=== PATIENT | male | born 1975 | race African-American/Black ===

== ENCOUNTER 2017-09-25 18:16 | Emergency (ER) | payer MEDICAID ==
[~2017-09-25] VITALS: Ht 175.3 cm; Wt 163.0 kg
[2017-09-25] MEDS ORDERED: ONDANSETRON HCL 4MG/2ML VIAL IV STA (19:08)
[2017-09-25] MEDS ORDERED: DIPHENHYDRAMINE 50MG/ML VIAL IV ONE (19:15)
[2017-09-25] MEDS ORDERED: FENTANYL CITRATE/PF 50MCG/ML 2ML VIAL IV ONE (19:15)
[2017-09-25 19:24] LABS: EOSINOPHILS % 3.5 % (0.0-5.0); HEMATOCRIT. 41.5 % (42.0-52.0); HEMOGLOBIN. 13.2 g/dL (14.0-18.0); LYMPHOCYTES % 31.2 % (20.0-50.0); MEAN CORPUSCULAR HEMOGLOBIN 25.1 pg (28.0-32.0); MEAN CORPUSCULAR VOLUME 78.9 fL (80.0-94.0); MEAN PLATELET VOLUME 9.6 fl (7.4-10.4); MONOCYTES % 5.6 % (2.0-8.0); NEUTROPHILS % 58.7 % (40.0-76.0); PLATELET 213 x1000/uL (130-400); RED BLOOD CELL COUNT 5.27 mill/uL (4.7-6.1); RED CELL DISTRIBUTION WIDTH 13.7 % (11.6-14.6)
[2017-09-25 19:30] LABS: PROTHROMBIN TIME 10.1 sec (9.4-11.6)
[2017-09-25 19:33] LABS: CHLORIDE 109 mEq/L (98-107)
[2017-09-25 19:40] LABS: ETHANOL BLOOD < 10 mg/dL
[2017-09-25 20:02] LABS: CLARITY URINE CLEAR (CLEAR); COLOR URINE YELLOW (YELLOW); KETONES URINE NEGATIVE (NEGATIVE); LEUKOCYTE ESTERASE URINE NEGATIVE (NEGATIVE); NITRITE URINE NEGATIVE (NEGATIVE); OCCULT BLOOD URINE 1+ (NEGATIVE); PH URINE 6.5 (4.5-8.0); PROTEIN URINE NEGATIVE (NEGATIVE); SPECIFIC GRAVITY URINE 1.012 (1.005-1.030); UROBILINOGEN URINE 0.2 E.U./dL (0.2-1.0)
[2017-09-25 20:21] LABS: *AMPHETAMINES SCREEN URINE NEGATIVE (NEGATIVE); *BARBITURATES SCREEN URINE NEGATIVE (NEGATIVE); *BENZODIAZEPINES SCREEN URINE NEGATIVE (NEGATIVE); *COCAINE SCREEN URINE NEGATIVE (NEGATIVE); METHADONE URINE SCREEN NEGATIVE (NEGATIVE); OPIATES URINE SCREEN NEGATIVE (NEGATIVE)
[2017-09-25 20:22] LABS: CANNABINOID URINE SCREEN NEGATIVE (NEGATIVE); PHENCYCLIDINE URINE SCREEN NEGATIVE (NEGATIVE)
[2017-09-25 20:51] VITALS: BP 151/100
== END 2017-09-26 00:17 | disposition home or self-care (01) ==
LOC: ER 18:30
DX: N23 Unspecified renal colic (principal); N20.0 Calculus of kidney; I16.0 Hypertensive urgency; Z87.891 Personal history of nicotine dependence
CPT/HCPCS: 36415; 71045; 72131; 74176; 80053; 80305; 81003; 83605; 83690; 83880; 84484; 85025; 85610; 93005; 96374; 96375; 99285; G0482; J1200; J2405; J3010; Z7610

== ENCOUNTER 2018-08-12 09:29 | Emergency (ER) | payer MEDICAID ==
[2018-08-12 09:49] VITALS: BP 159/105
[2018-08-12] MEDS ORDERED: KETOROLAC 60MG/2ML VIAL IM STA (11:16)
== END 2018-08-12 12:03 | disposition home or self-care (01) ==
LOC: ER 09:29
DX: M79.601 Pain in right arm (principal); R20.2 Paresthesia of skin; F17.200 Nicotine dependence, unspecified, uncomplicated; F12.10 Cannabis abuse, uncomplicated; F15.10 Other stimulant abuse, uncomplicated
CPT/HCPCS: 96372; 99283; J1885

== ENCOUNTER 2018-08-22 05:44 | Emergency (ER) | payer MEDICAID ==
[~2018-08-22] VITALS: Ht 175.3 cm; Wt 118.0 kg
[2018-08-22] MEDS ORDERED: ACETAMINOPHEN WITH CODEINE 300/30MG TABLET PO ONE (08:45)
[2018-08-22] MEDS ORDERED: KETOROLAC 60MG/2ML VIAL IM ONE (09:30)
[2018-08-22 09:39] VITALS: BP 160/109
== END 2018-08-22 09:41 | disposition home or self-care (01) ==
LOC: ER 05:44
DX: G89.29 Other chronic pain (principal); M79.601 Pain in right arm; R20.2 Paresthesia of skin; R03.0 Elevated blood-pressure reading, without diagnosis of hypertension; F15.10 Other stimulant abuse, uncomplicated; F12.90 Cannabis use, unspecified, uncomplicated; F17.210 Nicotine dependence, cigarettes, uncomplicated
CPT/HCPCS: 99283

== ENCOUNTER → 2019-10-30 | Outpatient (CLI) | payer MEDICAID ==
[~2019-10-30] MED LIST: GABA-531 PO; HYDR25TA PO; IBUP-2741 PO; NAPR-681 PO
== END | disposition home or self-care (01) ==
LOC: LAB 08:37
PROVIDERS: ATTEND Neurological Surgery
DX: Z01.818 Encounter for other preprocedural examination (principal); Z11.59 Encounter for screening for other viral diseases
CPT/HCPCS: C9803; U0003

== ENCOUNTER 2019-11-01 06:37 | Inpatient (IN) | payer MEDICAID ==
[2019-11-01] VITALS (25 sets, daily range): BP systolic 120–156; BP diastolic 65–92
[~2019-11-01] VITALS: Ht 175.3 cm; Wt 137.4 kg
[~2019-11-01 06:37] MED LIST changes: -GABA-531 PO; -HYDR25TA PO; -IBUP-2741 PO; +LACTATED RINGERS 1,000 ML IV SCH; -NAPR-681 PO
[2019-11-01] MEDS ORDERED: THROMBIN (BOVINE) 5000 UNITS/VIAL TOP ONE (07:37)
[2019-11-01] MEDS ORDERED: LIDOCAINE HCL/EPINEPHRINE 1%-EPI 1:100,000 20 ML VIAL ONE ×2 (07:38→07:39)
[2019-11-01] MEDS ORDERED: BACITRACIN 50,000 UNITS/VIAL ONE (07:38)
[2019-11-01] MEDS ORDERED: NORMAL SALINE 0.9% 10 ML SYR ONE (07:39)
[2019-11-01] MEDS ORDERED: GABA-531 PO (08:08)
[2019-11-01] MEDS ORDERED: HYDR25TA PO (08:08)
[2019-11-01] MEDS ORDERED: NAPR-681 PO (08:08)
[2019-11-01] MEDS ORDERED: IBUP-2741 PO (08:08)
[2019-11-01] MEDS ORDERED: NEOSTIGMINE METHYLSULFATE 1MG/ML 10 ML VIAL ONE (10:34)
[2019-11-01] MEDS ORDERED: FENTANYL CITRATE/PF 50MCG/ML 2ML VIAL ONE ×2 (10:34→11:18)
[2019-11-01] MEDS ORDERED: PROPOFOL 200MG/20ML VIAL IV ONE (10:34)
[2019-11-01] MEDS ORDERED: ROCURONIUM BROMIDE 10MG/ML VIAL 5ML IV ONE (10:34)
[2019-11-01] MEDS ORDERED: MIDAZOLAM HCL 2 MG/2 ML VIAL ONE (10:34)
[2019-11-01] MEDS ORDERED: GLYCOPYRROLATE 0.2 MG/ML 2ML VIAL ONE ×2 (10:35→12:39)
[2019-11-01] MEDS ORDERED: HYDROMORPHONE HCL/PF 2MG/ML (OR) ONE (11:15)
[2019-11-01] MEDS ORDERED: ONDANSETRON HCL 4MG/2ML INJ ONE (11:15)
[2019-11-01] MEDS ORDERED: ONDANSETRON HCL 4MG/2ML INJ IV PRN (12:00)
[2019-11-01] MEDS ORDERED: LABETALOL 5MG/ML SYR 20 MG/4 ML SYRINGE IV PRN (12:00)
[2019-11-01] MEDS ORDERED: MEPERIDINE HCL/PF 25MG/ML CPJ IV PRN (12:00)
[2019-11-01] MEDS: DEXAMETHASONE 4MG/ML 1ML VIAL IV SCH ×3 (12:00→23:55)
[2019-11-01] MEDS ORDERED: HYDRALAZINE 20MG/ML VIAL ONE (12:41)
[2019-11-01] MEDS: HYDROMORPHONE HCL/PF 2MG/ML CPJ IV PRN ×5 (13:37→17:11)
[2019-11-01] MEDS ORDERED: CEFAZOLIN SODIUM 1000MG/VIAL IV SCH (14:00)
[2019-11-01] MEDS ORDERED: HYDRALAZINE 20MG/ML VIAL IV NR (14:15)
[2019-11-01] MEDS: CEFAZOLIN 1000MG PREMIX 50 ML IV SCH (17:55)
[2019-11-01] MEDS: MORPHINE SULFATE 4 MG/ML CPJ (NOT FOR IM USE) IV PRN ×3 (17:56→23:18)
[2019-11-01] MEDS: DEXT 5%/LACTATED RINGERS 1,000 ML IV SCH (17:56)
[2019-11-01] MEDS ORDERED: IPRATROPIUM/ALBUTEROL 0.5-3(2.5)MG/3ML NEB HHN PRN (19:15)
[2019-11-01 19:42] LABS: HEMATOCRIT. 44.8 % (42.0-52.0); HEMOGLOBIN. 13.7 g/dL (14.0-18.0); MEAN CORPUSCULAR HEMOGLOBIN 24.9 pg (28.0-32.0); MEAN CORPUSCULAR VOLUME 81.2 fL (80.0-94.0); MEAN PLATELET VOLUME 9.7 fl (7.4-10.4); PLATELET 209 x1000/uL (130-400); RED BLOOD CELL COUNT 5.51 mill/uL (4.7-6.1); RED CELL DISTRIBUTION WIDTH 13.7 % (11.6-14.6)
[2019-11-01 19:45] LABS: CHLORIDE 108 mEq/L (98-107)
[2019-11-01 20:05] LABS: PLATELET ESTIMATE NORMAL
[2019-11-01] MEDS: NICARDIPINE 100 MG in SODIUM CHLORIDE 0.9% 60 ML IV PRN (21:23)
[2019-11-02] VITALS (92 sets, daily range): BP systolic 118–177; BP diastolic 55–107
[2019-11-02] MEDS: CEFAZOLIN 1000MG PREMIX 50 ML IV SCH ×3 (01:31→17:56)
[2019-11-02] MEDS: DEXT 5%/LACTATED RINGERS 1,000 ML IV SCH ×2 (02:00→05:16)
[2019-11-02] MEDS: MORPHINE SULFATE 4 MG/ML CPJ (NOT FOR IM USE) IV PRN ×6 (03:31→20:44)
[2019-11-02] MEDS: NICARDIPINE 100 MG in SODIUM CHLORIDE 0.9% 60 ML IV PRN ×3 (04:27→18:00)
[2019-11-02] MEDS: DEXAMETHASONE 4MG/ML 1ML VIAL IV SCH ×4 (05:16→23:59)
[2019-11-02] MEDS: OXYCODONE HCL/ACETAMINOPHEN 5/325MG TABLET PO PRN ×3 (09:25→19:42)
[2019-11-02] MEDS ORDERED: AMLODIPINE 10MG TABLET PO SCH (09:45)
[2019-11-02] MEDS: HYDROCHLOROTHIAZIDE 25MG TABLET PO SCH (11:04)
[2019-11-02] MEDS: CLONIDINE 0.1MG TABLET PO PRN (15:47)
[2019-11-03] VITALS (94 sets, daily range): BP systolic 101–169; BP diastolic 45–84
[2019-11-03] MEDS: NICARDIPINE 100 MG in SODIUM CHLORIDE 0.9% 60 ML IV PRN ×3 (00:02→16:23)
[2019-11-03] MEDS: CEFAZOLIN 1000MG PREMIX 50 ML IV SCH ×2 (01:16→09:50)
[2019-11-03] MEDS: MORPHINE SULFATE 4 MG/ML CPJ (NOT FOR IM USE) IV PRN ×5 (04:59→20:20)
[2019-11-03] MEDS: DEXAMETHASONE 4MG/ML 1ML VIAL IV SCH ×2 (05:00→12:30)
[2019-11-03] MEDS: HYDROCHLOROTHIAZIDE 25MG TABLET PO SCH (08:37)
[2019-11-03] MEDS: AMLODIPINE 10MG TABLET PO SCH (08:38)
[2019-11-03] MEDS: OXYCODONE HCL/ACETAMINOPHEN 5/325MG TABLET PO PRN ×2 (08:38→16:31)
[2019-11-03] MEDS: CLONIDINE 0.1MG TABLET PO PRN (12:30)
[2019-11-03] MEDS: LOSARTAN POTASSIUM 50 MG TABLET PO SCH ×2 (15:22→21:36)
[2019-11-03] MEDS: DOCUSATE SODIUM 100MG CAPSULE PO SCH (15:22)
[2019-11-03] MEDS: CLONIDINE 0.1MG TABLET PO SCH (21:37)
[2019-11-04] VITALS (52 sets, daily range): BP systolic 93–152; BP diastolic 43–79
[2019-11-04] MEDS: MORPHINE SULFATE 4 MG/ML CPJ (NOT FOR IM USE) IV PRN ×3 (00:34→10:32)
[2019-11-04] MEDS: NICARDIPINE 100 MG in SODIUM CHLORIDE 0.9% 60 ML IV PRN (01:33)
[2019-11-04] MEDS: CLONIDINE 0.1MG TABLET PO SCH (06:56)
[2019-11-04] MEDS: DOCUSATE SODIUM 100MG CAPSULE PO SCH (09:07)
[2019-11-04] MEDS: LOSARTAN POTASSIUM 50 MG TABLET PO SCH (09:07)
[2019-11-04] MEDS: HYDROCHLOROTHIAZIDE 25MG TABLET PO SCH (09:07)
[2019-11-04] MEDS: AMLODIPINE 10MG TABLET PO SCH (09:08)
[2019-11-04] MEDS ORDERED: LACTULOSE 20G/30ML UDC PO NR (11:15)
[2019-11-04] MEDS ORDERED: AMLO10TA80 PO (12:12)
[2019-11-04] MEDS ORDERED: LOSA50TA3 PO (12:12)
== END 2019-11-04 15:00 | disposition home or self-care (01) | DRG 321 ==
LOC: OR 06:37 → MICUNO 16:32
PROVIDERS: ADMIT Neurological Surgery; ATTEND Neurological Surgery
PROC: 0RG20A0 Fusion of 2 or more Cervical Vertebral Joints with Interbody Fusion Device, Anterior Approach, Anterior Column, Open Approach (ICD-10-PCS; principal; 2019-11-01)
PROC: 00NW0ZZ Release Cervical Spinal Cord, Open Approach (ICD-10-PCS; 2019-11-01)
DX: M47.12 Other spondylosis with myelopathy, cervical region (principal); T83.83XA Hemorrhage due to genitourinary prosthetic devices, implants and grafts, initial encounter; G82.50 Quadriplegia, unspecified; E66.9 Obesity, unspecified; I10 Essential (primary) hypertension; R31.9 Hematuria, unspecified; R26.89 Other abnormalities of gait and mobility; M48.02 Spinal stenosis, cervical region; S37.30XA Unspecified injury of urethra, initial encounter; M25.78 Osteophyte, vertebrae; Y83.8 Other surgical procedures as the cause of abnormal reaction of the patient, or of later complication, without mention of misadventure at the time of the procedure; Z87.442 Personal history of urinary calculi; Z68.41 Body mass index [BMI] 40.0-44.9, adult; Z79.899 Other long term (current) drug therapy; Y92.89 Other specified places as the place of occurrence of the external cause
CPT/HCPCS: 36415; 72040; 72141; 76000; 80048; 85025; 86850; 86870; 86900; 88311; 95863; 95925; 95926; 95928; 95929; 95940; 97116; 97162; 97166; C1713; J0360; J0690; J1100; J1170; J2175; J2250; J2270; J2405; J2704; J2710; J3010; J3490; J7050; J7121; L0172

== ENCOUNTER 2019-11-04 19:52 | Emergency (ER) | payer MEDICAID ==
[~2019-11-04] VITALS: Ht 172.7 cm; Wt 127.0 kg
[~2019-11-04 19:52] MED LIST changes: +AMLO10TA80 PO; +GABA-531 PO; +HYDR25TA PO; +IBUP-2741 PO; -LACTATED RINGERS 1,000 ML IV SCH; +LOSA50TA3 PO; +NAPR-681 PO
[2019-11-04 20:44] VITALS: BP 153/85
[2019-11-04 22:04] LABS: HEMATOCRIT. 45.9 % (42.0-52.0); HEMOGLOBIN. 14.1 g/dL (14.0-18.0); MEAN CORPUSCULAR HEMOGLOBIN 24.4 pg (28.0-32.0); MEAN CORPUSCULAR VOLUME 79.1 fL (80.0-94.0); MEAN PLATELET VOLUME 9.4 fl (7.4-10.4); PLATELET 236 x1000/uL (130-400); RED CELL DISTRIBUTION WIDTH 13.4 % (11.6-14.6)
[2019-11-04 22:10] LABS: CLARITY URINE CLEAR (CLEAR); COLOR URINE ORANGE (YELLOW); KETONES URINE NEGATIVE (NEGATIVE); LEUKOCYTE ESTERASE URINE NEGATIVE (NEGATIVE); NITRITE URINE NEGATIVE (NEGATIVE); OCCULT BLOOD URINE 3+ (NEGATIVE); PH URINE 6.5 (4.5-8.0); PROTEIN URINE NEGATIVE (NEGATIVE); SPECIFIC GRAVITY URINE 1.024 (1.005-1.030)
[2019-11-04 22:14] LABS: *BENZODIAZEPINES SCREEN URINE NEGATIVE (NEGATIVE); *COCAINE SCREEN URINE NEGATIVE (NEGATIVE)
[2019-11-04 22:15] LABS: *AMPHETAMINES SCREEN URINE NEGATIVE (NEGATIVE); *BARBITURATES SCREEN URINE NEGATIVE (NEGATIVE); CANNABINOID URINE SCREEN PRESUMTIVE POSITIVE (NEGATIVE); METHADONE URINE SCREEN NEGATIVE (NEGATIVE); OPIATES URINE SCREEN PRESUMTIVE POSITIVE (NEGATIVE); PHENCYCLIDINE URINE SCREEN NEGATIVE (NEGATIVE)
[2019-11-04 22:16] LABS: INR 0.9; PARTIAL THROMBOPLASTIN TIME 23.4 sec (23.4-31.0); PROTHROMBIN TIME 9.8 sec (9.6-11.0)
[2019-11-04 22:25] LABS: CHLORIDE 101 mEq/L (98-107)
[2019-11-04 22:29] LABS: ETHANOL BLOOD < 10 mg/dL
[2019-11-04 23:19] LABS: PLATELET ESTIMATE NORMAL
== END 2019-11-04 23:40 | disposition home or self-care (01) ==
LOC: ER 20:12
DX: T83.83XA Hemorrhage due to genitourinary prosthetic devices, implants and grafts, initial encounter (principal); Y73.8 Miscellaneous gastroenterology and urology devices associated with adverse incidents, not elsewhere classified; Y92.89 Other specified places as the place of occurrence of the external cause; Z98.890 Other specified postprocedural states; I10 Essential (primary) hypertension; F12.90 Cannabis use, unspecified, uncomplicated; F15.10 Other stimulant abuse, uncomplicated
CPT/HCPCS: 36415; 76770; 80053; 80305; 80320; 81003; 85025; 93005; 99284; G0480

== ENCOUNTER 2019-11-07 11:26 | Inpatient (IN) | payer MEDICAID ==
[~2019-11-07] VITALS: Ht 182.9 cm; Wt 129.3 kg
[2019-11-07] MEDS ORDERED: SODIUM CHLORIDE 0.9% 1,000 ML IV ONE (12:00)
[2019-11-07] MEDS ORDERED: ONDANSETRON HCL 4MG/2ML INJ IV STA ×2 (12:00→17:47)
[2019-11-07] MEDS ORDERED: MORPHINE SULFATE 4 MG/ML CPJ (NOT FOR IM USE) IV STA ×2 (12:00→17:47)
[2019-11-07 12:20] LABS: BASOPHILS % 0.9 % (0.0-2.0); HEMATOCRIT. 46.2 % (42.0-52.0); HEMOGLOBIN. 14.7 g/dL (14.0-18.0); LYMPHOCYTES % 22.7 % (20.0-50.0); MEAN CORPUSCULAR HEMOGLOBIN 24.8 pg (28.0-32.0); MEAN CORPUSCULAR VOLUME 78.1 fL (80.0-94.0); MEAN PLATELET VOLUME 9.1 fl (7.4-10.4); NEUTROPHILS % 68.4 % (40.0-76.0); PLATELET 294 x1000/uL (130-400); RED BLOOD CELL COUNT 5.91 mill/uL (4.7-6.1); RED CELL DISTRIBUTION WIDTH 13.3 % (11.6-14.6)
[2019-11-07 12:22] LABS: CHLORIDE 101 mEq/L (98-107)
[2019-11-07 12:25] LABS: ETHANOL BLOOD < 10 mg/dL
[2019-11-07 12:26] LABS: PROTHROMBIN TIME 10.5 sec (9.6-11.0)
[2019-11-07 14:53] LABS: CLARITY URINE CLEAR (CLEAR); COLOR URINE YELLOW (YELLOW); KETONES URINE NEGATIVE (NEGATIVE); LEUKOCYTE ESTERASE URINE NEGATIVE (NEGATIVE); NITRITE URINE NEGATIVE (NEGATIVE); OCCULT BLOOD URINE 1+ (NEGATIVE); PROTEIN URINE TRACE (NEGATIVE); SPECIFIC GRAVITY URINE 1.018 (1.005-1.030); UROBILINOGEN URINE 0.2 E.U./dL (0.2-1.0)
[2019-11-07 15:21] LABS: *AMPHETAMINES SCREEN URINE NEGATIVE (NEGATIVE); *BARBITURATES SCREEN URINE NEGATIVE (NEGATIVE); *BENZODIAZEPINES SCREEN URINE NEGATIVE (NEGATIVE); *COCAINE SCREEN URINE NEGATIVE (NEGATIVE); METHADONE URINE SCREEN NEGATIVE (NEGATIVE); OPIATES URINE SCREEN PRESUMTIVE POSITIVE (NEGATIVE)
[2019-11-07 15:22] LABS: CANNABINOID URINE SCREEN PRESUMTIVE POSITIVE (NEGATIVE); PHENCYCLIDINE URINE SCREEN NEGATIVE (NEGATIVE)
[2019-11-07 21:30] VITALS: BP 141/94
[2019-11-07] MEDS ORDERED: ONDANSETRON HCL 4MG/2ML INJ IV PRN (21:45)
[2019-11-07] MEDS ORDERED: ACETAMINOPHEN 325MG TABLET PO PRN (21:45)
[2019-11-07] MEDS ORDERED: IPRATROPIUM/ALBUTEROL 0.5-3(2.5)MG/3ML NEB NEB PRN (21:45)
[2019-11-07] MEDS ORDERED: CLONIDINE 0.1MG TABLET PO PRN (21:45)
[2019-11-07] MEDS ORDERED: MAGNESIUM/ALUMINUM HYDROXIDE/SIMETHICONE 30ML UDC PO PRN (21:45)
[2019-11-07] MEDS: HYDROCODONE/ACETAMINOPHEN 5/325MG TABLET PO PRN (22:23)
[2019-11-07 23:07] LABS: CHLORIDE 101 mEq/L (98-107)
[2019-11-07 23:16] LABS: CREATINE KINASE 78 IU/L (39-308)
[2019-11-07 23:18] LABS: CREATINE KINASE MB FRACTION < 1.0 ng/mL (0.5-3.6)
[2019-11-07 23:30] VITALS: BP 141/94
[2019-11-08] VITALS (7 sets, daily range): BP systolic 128–150; BP diastolic 63–96
[2019-11-08] MEDS: HYDROCODONE/ACETAMINOPHEN 5/325MG TABLET PO PRN ×4 (04:27→20:44)
[2019-11-08 06:48] LABS: LDL CHOLESTEROL 79 mg/dL (5-100)
[2019-11-08 06:50] LABS: CREATINE KINASE 65 IU/L (39-308)
[2019-11-08 06:52] LABS: CREATINE KINASE MB FRACTION < 1.0 ng/mL (0.5-3.6); HDL CHOLESTEROL 44 mg/dL (40-59)
[2019-11-08 06:54] LABS: BASOPHILS % 0.2 % (0.0-2.0); EOSINOPHILS % 2.1 % (0.0-5.0); HEMATOCRIT. 44.7 % (42.0-52.0); HEMOGLOBIN. 14.1 g/dL (14.0-18.0); LYMPHOCYTES % 26.7 % (20.0-50.0); MEAN CORPUSCULAR HEMOGLOBIN 24.7 pg (28.0-32.0); MEAN PLATELET VOLUME 9.2 fl (7.4-10.4); MONOCYTES % 7.1 % (2.0-8.0); NEUTROPHILS % 63.9 % (40.0-76.0); PLATELET 270 x1000/uL (130-400); RED BLOOD CELL COUNT 5.73 mill/uL (4.7-6.1); RED CELL DISTRIBUTION WIDTH 13.1 % (11.6-14.6)
[2019-11-08] MEDS ORDERED: VANCOMYCIN 1 G PREMIX 200 ML IV SCH (11:30)
[2019-11-08] MEDS: AMLODIPINE 10MG TABLET PO SCH (12:36)
[2019-11-08] MEDS: HYDROCHLOROTHIAZIDE 25MG TABLET PO SCH (12:36)
[2019-11-08] MEDS ORDERED: VANCOMYCIN 2,000 MG in DEXT 5% WATER 500 ML IV NR (13:00)
[2019-11-08] MEDS: DOCUSATE SODIUM 100MG CAPSULE PO SCH (16:09)
[2019-11-08] MEDS ORDERED: HYDR-3281 MT (19:29)
[2019-11-08] MEDS: LOSARTAN POTASSIUM 50 MG TABLET PO SCH (20:43)
[2019-11-08] MEDS: VANCOMYCIN 1500MG in DEXTROSE 5% WATER 250ML IV SCH (22:09)
[2019-11-09] VITALS: BP 150/96
[2019-11-09] MEDS: HYDROCODONE/ACETAMINOPHEN 5/325MG TABLET PO PRN ×2 (00:51→08:41)
[2019-11-09 04:00] VITALS: BP 148/97
[2019-11-09 07:58] VITALS: BP 108/65
[2019-11-09] MEDS: DOCUSATE SODIUM 100MG CAPSULE PO SCH (08:34)
[2019-11-09] MEDS: HYDROCHLOROTHIAZIDE 25MG TABLET PO SCH (08:34)
[2019-11-09] MEDS: AMLODIPINE 10MG TABLET PO SCH (08:34)
[2019-11-09] MEDS: LOSARTAN POTASSIUM 50 MG TABLET PO SCH (08:34)
[2019-11-09] MEDS: VANCOMYCIN 1500MG in DEXTROSE 5% WATER 250ML IV SCH (08:35)
[2019-11-09 12:00] VITALS: BP_SYST 112; BP_SYST 133; BP_DIAS 88; BP_DIAS 95
[2019-11-09] MEDS ORDERED: AMOX1TAB16 MT (13:49)
[2019-11-09] MEDS ORDERED: DOXY100C42 MT (13:49)
[2019-11-09 14:35] VITALS: BP 133/95
[2019-11-09 16:52] LABS: BASOPHILS % 0.3 % (0.0-2.0); EOSINOPHILS % 1.6 % (0.0-5.0); HEMATOCRIT. 47.3 % (42.0-52.0); HEMOGLOBIN. 14.9 g/dL (14.0-18.0); LYMPHOCYTES % 24.8 % (20.0-50.0); MEAN CORPUSCULAR HEMOGLOBIN 24.6 pg (28.0-32.0); MEAN CORPUSCULAR VOLUME 78.1 fL (80.0-94.0); MEAN PLATELET VOLUME 9.1 fl (7.4-10.4); MONOCYTES % 6.7 % (2.0-8.0); NEUTROPHILS % 66.6 % (40.0-76.0); PLATELET 339 x1000/uL (130-400); RED BLOOD CELL COUNT 6.06 mill/uL (4.7-6.1)
== END 2019-11-09 16:20 | disposition home or self-care (01) | DRG 720 ==
LOC: ER 11:38 → 8WST 17:48 → ENRESERV 20:47 → 8WST 21:44
PROVIDERS: ADMIT Internal Medicine; ATTEND Internal Medicine
DX: A41.9 Sepsis, unspecified organism (principal); G90.8 Other disorders of autonomic nervous system; I10 Essential (primary) hypertension; L03.113 Cellulitis of right upper limb; E78.5 Hyperlipidemia, unspecified; E87.1 Hypo-osmolality and hyponatremia; E87.6 Hypokalemia; R31.9 Hematuria, unspecified; R30.0 Dysuria; I80.9 Phlebitis and thrombophlebitis of unspecified site; E44.0 Moderate protein-calorie malnutrition
CPT/HCPCS: 36415; 71045; 72040; 72141; 73200; 80048; 80053; 80061; 80305; 80320; 81003; 82550; 82553; 83036; 83735; 84145; 84443; 84484; 85025; 93005; 93306; 93880; 93970; 96374; 99285; J2270; J2405; J3370; J7030; J7060; L0172; G0480

== ENCOUNTER → 2020-02-12 | Outpatient (CLI) | payer MEDICAID ==
[~2020-02-12] MED LIST changes: +AMOX1TAB16 MT; +BACITRACIN 50,000 UNITS/VIAL ONE; +CLON0.1T PO; +DOXY100C42 MT; -GABA-531 PO; +HYDR-3281 MT; -IBUP-2741 PO; -NAPR-681 PO; +THROMBIN (BOVINE) 5000 UNITS/VIAL TOP ONE; +TRAM50TA3 PO
== END | disposition home or self-care (01) ==
LOC: LAB 07:59
PROVIDERS: ATTEND Neurological Surgery
DX: Z01.812 Encounter for preprocedural laboratory examination (principal); Z20.828 Contact with and (suspected) exposure to other viral communicable diseases
CPT/HCPCS: C9803; U0003